=== PATIENT | female | born 1950 | race Caucasian/White ===

== ENCOUNTER 2016-06-05 08:17 | Emergency (ER) | payer BC ==
[2016-06-05 08:35] VITALS: BP 168/86
--- NOTE | 2016-06-05 08:54 | EDM.PDOC ---
ED HPI GENERAL MEDICAL PROBLEM - General Chief Complaint: General Stated Complaint: RIGHT RIB PAIB,SHORTNESS OF BREATH Time Seen by Provider: 06/05/16 08:54 Source of Information: Reports: Patient History Limitations: Reports: No limitations - History of Present Illness INITIAL COMMENTS - FREE TEXT/NARRATIVE: 65 YO WF presents to ER after fall at home in the bathroom 4 days ago. Pt complaining of right rib pain. Pt states she slipped in the bathroom falling over the tub/shower enclosure. Pt reports her pain has worsened since her fall. Pt denies any other injury. Pt denies head injury or loss of consciousness. Pt reports extensive smoking history and reports some associated shortness of breath and pleuritic right sided chest wall pain. Onset Date: 06/02/16 Duration: Day(s): (4) Location: Reports: chest Quality: Reports: Ache Severity: moderate Improves with: Reports: Rest Worsens with: Reports: Breathing Associated Symptoms: Reports: chest pain, shortness of breath right rib pain Pain Score (Numeric/FACES): 8 - Related Data Allergies Allergy/AdvReac Type Severity Reaction Status Date / Time Sulfa (Sulfonamide Allergy Unknown Cannot Unverified 06/11/13 23:50 Antibiotics) Remember erythromycin base Allergy Stomach Verified 06/11/13 23:49 [Erythromycin Base] Upset Penicillins Allergy Cannot Verified 06/05/16 08:37 Remember Tetracyclines Allergy Cannot Verified 06/11/13 23:50 Remember Home Meds: Home Meds Levothyroxine [Synthroid] 100 mcg PO DAILY 06/11/13 [History] Aspirin [Halfprin] 81 mg PO BEDTIME 06/12/13 [History] Albuterol [Ventolin HFA] 8 gm INH Q4H PRN #1 inhaler 06/05/16 [Rx] Levofloxacin [Levaquin] 500 mg PO Q24H #10 tablet 06/05/16 [Rx] guaiFENesin/Codeine Phosphate [Guaifenesin AC Cough Syrup] 1 tsp PO Q6HR PRN [History] traMADol [Ultram] 50 mg PO Q6H PRN #15 tablet 06/05/16 [Rx] Social & Family History - Tobacco Use Smoking Status *Q: Current Every Day Smoker Years of Tobacco use: 30 Packs/Tins Daily: 1 Used Tobacco, but Quit: No Second Hand Smoke Exposure: No - Caffeine Use Caffeine Use: Reports: Tea - Alcohol Use Days Per Week of Alcohol Use: 0 - Recreational Drug Use Recreational Drug Use: No ED ROS GENERAL - Review of Systems Review Of Systems: See Below Constitutional: Reports: no symptoms HEENT: Reports: No symptoms Respiratory: Reports: Shortness of Breath, Pleuritic Chest Pain. Denies: Wheezing, Cough, Sputum, Hemoptysis Cardiovascular: Reports: No symptoms Endocrine: Reports: no symptoms GI/Abdominal: Reports: No symptoms : Reports: no symptoms Musculoskeletal: Reports: no symptoms Skin: Reports: no symptoms Neurological: Reports: No Symptoms Psychiatric: Reports: No symptoms Hematologic/Lymphatic: Reports: no symptoms Immunologic: Reports: no symptoms ED EXAM, GENERAL - Physical Exam Exam: See Below Exam Limited By: No limitations General Appearance: alert, WD/WN, no apparent distress Eye Exam: bilateral eye: PERRL Ears: normal external exam, normal canal, hearing grossly normal, normal TMs Nose: normal inspection, normal mucosa, no blood Throat/Mouth: Normal inspection, Normal lips, Normal teeth, Normal gums, Normal oropharynx, Normal voice, No airway compromise Head: atraumatic, normocephalic Neck: normal inspection, supple, non-tender, full range of motion Respiratory/Chest: no respiratory distress, lungs clear, normal breath sounds, no accessory muscle use, chest non-tender Cardiovascular: normal peripheral pulses, regular rate, rhythm, no edema, no gallop, no JVD, no murmur, no rub GI/Abdominal: normal bowel sounds, soft, non tender, no organomegaly, no distention, no abnormal bruit, no mass Back Exam: normal inspection, full range of motion, NT Extremities: normal inspection, normal range of motion, non-tender, normal capillary refill, no pedal edema Neurological: alert, oriented, CN II-XII intact, normal cognition, normal gait, normal reflexes, no motor/sensory deficits Psychiatric: normal affect, normal mood Skin Exam: Warm, Dry, Intact, Normal color, No rash Lymphatic: no adenopathy Course - Vital Signs Last Recorded V/S: Last Vital Signs Temp 36.6 C 06/05/16 08:34 Pulse 75 06/05/16 08:34 Resp 22 H 06/05/16 08:34 BP 168/86 H 06/05/16 08:34 Pulse Ox 98 06/05/16 08:34 - Orders/Labs/Meds Orders: Active Orders 24 hr Category Date Time Status Ribs 2V w Chest Rt [CR] Stat Exams 06/05/16 08:53 Ordered - Radiology Interpretation Free Text/Narrative:: CXR- NAD; no fracture Departure - Departure Time of Disposition: 10:08 Disposition: Home, Self-Care 01 Condition: good Clinical Impression: Chest wall contusion Qualifiers: Encounter type: initial encounter Laterality: right Qualified Code(s): S20.211A - Contusion of right front wall of thorax, initial encounter Prescriptions: Albuterol [Ventolin HFA] 8 gm INH Q4H PRN #1 inhaler PRN Reason: Shortness Of Breath Levofloxacin [Levaquin] 500 mg PO Q24H #10 tablet traMADol [Ultram] 50 mg PO Q6H PRN #15 tablet PRN Reason: Pain Instructions: Chest Wall Pain, [id number] Forms: ED Department Discharge - My Orders Last 24 Hours: My Active Orders 06/05/16 08:53 Ribs 2V w Chest Rt [CR] Stat - Assessment/Plan Last 24 Hours: My Active Orders 06/05/16 08:53 Ribs 2V w Chest Rt [CR] Stat Assessment:: 1. right chest wall contusion 2. fall Plan: 1. ultram 50mg PO Q6 PRN pain 2. z carrie 3. albuterol MDI 4. follow up at clinic for worsening symptoms
== END 2016-06-05 10:20 | disposition home or self-care (01) ==
LOC: KA.ED 08:17
DX: S20.211A Contusion of right front wall of thorax, initial encounter (principal); F17.210 Nicotine dependence, cigarettes, uncomplicated; Z88.0 Allergy status to penicillin; Z88.2 Allergy status to sulfonamides; Z88.9 Allergy status to unspecified drugs, medicaments and biological substances; Z79.82 Long term (current) use of aspirin; W18.2XXA Fall in (into) shower or empty bathtub, initial encounter; Y92.002 Bathroom of unspecified non-institutional (private) residence as the place of occurrence of the external cause
CPT/HCPCS: 71101-RT; 99284

== ENCOUNTER 2019-05-30 07:44 | Emergency (ER) | payer BC ==
--- NOTE | 2019-05-30 08:06 | EDM.PDOC ---
ED HPI GENERAL MEDICAL PROBLEM - General Chief Complaint: Wound Recheck Stated Complaint: STICHES OPENING UP Time Seen by Provider: 05/30/19 08:00 Source of Information: Reports: Patient History Limitations: Reports: No Limitations - History of Present Illness INITIAL COMMENTS - FREE TEXT/NARRATIVE: Patient is a 68-year-old female who presents to the emergency department via private vehicle with a complaint of bleeding from surgical site. Patient states that she underwent bowel resection on May 21. Patient currently has david at incision site. Patient states last night she slept on her abdomen and awoke this morning to a small amount of blood on her sheets. Patient became concerned and decided to present to the emergency department. Patient denies chest pain, shortness of breath, abdominal pain, nausea, vomiting, diarrhea, or dysuria. Onset: Today Duration: Hour(s): Location: Reports: Abdomen Quality: Reports: Other (No pain) Severity: Mild Improves with: Reports: None Worsens with: Reports: None Associated Symptoms: Reports: No Other Symptoms - Related Data Allergies Allergy/AdvReac Type Severity Reaction Status Date / Time Sulfa (Sulfonamide Allergy Unknown Cannot Verified 07/21/18 13:55 Antibiotics) Remember erythromycin base Allergy Stomach Verified 07/21/18 13:55 [Erythromycin Base] Upset Penicillins Allergy Cannot Verified 07/21/18 13:55 Remember Tetracyclines Allergy Cannot Verified 07/21/18 13:55 Remember Home Meds: Home Meds Levothyroxine [Synthroid] 100 mcg PO DAILY 06/11/13 [History] Aspirin [Halfprin] 81 mg PO BEDTIME 06/12/13 [History] guaiFENesin/Codeine Phosphate [Guaifenesin AC Cough Syrup] 1 tsp PO Q6HR PRN [History] Lansoprazole 30 mg PO DAILY PRN 07/21/18 [History] Rosuvastatin [Crestor] 10 mg PO DAILY 07/21/18 [History] Past Medical History HEENT History: Reports: Otitis Media, Other (See Below) Other HEENT History: benign paroxysmal vertigo Cardiovascular History: Reports: Arrhythmia, High Cholesterol, Hypertension, Other (See Below) 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 Constitutional: Reports: No Symptoms HEENT: Reports: No Symptoms Respiratory: Reports: No Symptoms Cardiovascular: Reports: No Symptoms Endocrine: Reports: No Symptoms GI/Abdominal: Reports: No Symptoms : Reports: No Symptoms Musculoskeletal: Reports: No Symptoms Skin: Reports: Other (Bleeding from incision site) Neurological: Reports: No Symptoms Psychiatric: Reports: No Symptoms Hematologic/Lymphatic: Reports: No Symptoms Immunologic: Reports: No Symptoms ED EXAM, GENERAL - Physical Exam Exam: See Below Exam Limited By: No Limitations General Appearance: Alert, WD/WN, No Apparent Distress Throat/Mouth: Normal Inspection, Normal Oropharynx, No Airway Compromise Head: Atraumatic, Normocephalic Respiratory/Chest: No Respiratory Distress, Lungs Clear, Normal Breath Sounds, No Accessory Muscle Use, Chest Non-Tender Cardiovascular: Regular Rate, Rhythm, No Murmur GI/Abdominal: Normal Bowel Sounds, Soft, Non-Tender, No Organomegaly, No Distention, No Abnormal Bruit, No Mass Back Exam: Normal Inspection. No: CVA Tenderness (L), CVA Tenderness (R) Extremities: Normal Inspection Neurological: Alert, Oriented, Normal Cognition Psychiatric: Normal Affect, Normal Mood Skin Exam: Warm, Dry, Intact, Normal Color, No Rash, Other (Mid abdomen incision site encompassing umbilicus with david intact. No dehiscence. Small amount of serosanguineous fluid. No hematoma or mass appreciated.) Lymphatic: No Adenopathy Course - Re-Assessments/Exams Free Text/Narrative Re-Assessment/Exam: 05/30/19 08:06 Patient afebrile, vital signs stable, denies abdominal pain, nausea, vomiting, diarrhea. Small amount of serosanguineous fluid noted from surgical incision site. Wound redressed and patient will follow-up with surgeon as scheduled Departure - Departure Time of Disposition: 08:07 Disposition: Home, Self-Care 01 Condition: Good Clinical Impression: Encounter for postoperative wound check - Discharge Information Instructions: Sutures, Onia, or Adhesive Wound Closure, [id number], Wound Check Referrals: Mena Bautista MD [Primary Care Provider] - Forms: ED Department Discharge Additional Instructions: Follow-up with surgeon as scheduled. Return to emergency department sooner if symptoms continue or worsen. - Assessment/Plan Assessment:: Postsurgical wound check Plan: Follow-up with surgeon as scheduled
[2019-05-30 12:51] VITALS: BP 146/56; PULSE 70
== END 2019-05-30 08:10 | disposition home or self-care (01) ==
LOC: KA.ED 07:44
DX: Z48.815 Encounter for surgical aftercare following surgery on the digestive system (principal); E78.00 Pure hypercholesterolemia, unspecified; I10 Essential (primary) hypertension; K21.9 Gastro-esophageal reflux disease without esophagitis; E03.9 Hypothyroidism, unspecified; Z79.899 Other long term (current) drug therapy; Z88.2 Allergy status to sulfonamides; Z88.1 Allergy status to other antibiotic agents; Z88.0 Allergy status to penicillin; Z88.8 Allergy status to other drugs, medicaments and biological substances; Z79.82 Long term (current) use of aspirin
CPT/HCPCS: 99283

== ENCOUNTER 2020-12-06 14:55 | Emergency (ER) | payer BC ==
[2020-12-06 15:15] VITALS: BP 127/82; PULSE 81
--- NOTE | 2020-12-06 16:13 | EDM.PDOC ---
ED HPI GENERAL MEDICAL PROBLEM - General Chief Complaint: General Stated Complaint: ANAL PAIN/sciatica left leg Time Seen by Provider: 12/06/20 15:10 Source of Information: Reports: Patient, Family () - History of Present Illness INITIAL COMMENTS - FREE TEXT/NARRATIVE: This is a 70-year-old female who comes in with quite clinical complexity of complaints. She has had a long history of bowel problems over the past a year which was pertaining to her diverticulitis. She reports she had about a 10 inches removed of her large bowel due for diverticulitis about a year ago. Her postoperative course was complicated with postoperative infection and leakage. Ultimately she went on to have a colostomy for bowel rest which has been reversed back. She complains of pain down in her left groin and she states that this radiates to her rectum. She complains of having spasms and is taking Flexeril for this. Sounds like she has had extensive work-up follows up both with her general surgeon from [facility] in [place] as well as primary care. She does use Flexeril for muscle relaxer and lidocaine gel over her rectum she takes Tylenol PM for the pain and discomfort. Her main focus today seems to be that she is now experiencing more left buttock and leg pain with a radicular origin. She denies significant back pain. She does not walk very far. Fact she walks probably less than a block. Stairs have become almost impossible for her unless she has support of a rail system because of the pain that she gets in her left buttock. She has had a work-up recently with her primary care who has told her she does not have hemorrhoids. She does have daily bowel movements. She reports no dysuria or hematuria no blood in her stool. She has not experienced any weight loss. Has been told in the past that she has a some hip arthritis per her 's report. She has not had further work-up with regards to her back or radicular symptoms in her leg. She is not currently experiencing any fever or chills, currently no abdominal pain, no diarrhea no constipation no symptoms. She has a bowel movement every day. Onset: Unknown/Unsure Duration: Week(s): (Chronic for months) Location: Reports: Pelvis, Lower Extremity, Left Quality: Reports: Ache, Burning, Stabbing Severity: Moderate Improves with: Reports: Rest Worsens with: Reports: Movement (Ambulatory) Associated Symptoms: Reports: No Other Symptoms Treatments [employer]: Reports: Acetaminophen, Other Medication(s) Left Groin Pain Score (Numeric/FACES): 3 - Related Data Allergies Allergy/AdvReac Type Severity Reaction Status Date / Time Sulfa (Sulfonamide Allergy Unknown Cannot Verified 12/06/20 15:20 Antibiotics) Remember erythromycin base Allergy Stomach Verified 12/06/20 15:20 [Erythromycin Base] Upset Penicillins Allergy Cannot Verified 12/06/20 15:20 Remember Tetracyclines Allergy Cannot Verified 12/06/20 15:20 Remember Home Meds: Home Meds Levothyroxine [Synthroid] 100 mcg PO DAILY 06/11/13 [History] Aspirin [Halfprin] 81 mg PO DAILY 06/12/13 [History] Lansoprazole 30 mg PO DAILY PRN 07/21/18 [History] Rosuvastatin [Crestor] 10 mg PO DAILY 07/21/18 [History] Acetaminophen [Tylenol Extra Strength] 1,000 mg PO Q4H PRN 12/06/20 [History] Acetaminophen/Diphenhydramine [Tylenol Pm Ex-Strength Caplet] 1 each PO BEDTIME 12/06/20 [History] Cyclobenzaprine [Flexeril] 10 mg PO TID PRN 12/06/20 [History] Lidocaine 2% [Lidocaine 2% Jelly] 1 ml TOP TID PRN 12/06/20 [History] Phenyleph/Pramoxin/Glycr/w.Pet [Preparation H Cream] 1 gm RC DAILY PRN 12/06/20 [History] Past Medical History HEENT History: Reports: Otitis Media, Other (See Below) Other HEENT History: benign paroxysmal vertigo Cardiovascular History: Reports: Arrhythmia, High Cholesterol, Hypertension, Other (See Below) 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 Respiratory History: Reports: Other (See Below) Other Respiratory History: seasonal allergic rhinitis Gastrointestinal History: Reports: Diverticulosis, GERD Musculoskeletal History: Reports: Back Pain, Chronic, Neck Pain, Chronic Endocrine/Metabolic History: Reports: Hypothyroidism Oncologic (Cancer) History: Reports: Thyroid Social & Family History - Tobacco Use Tobacco Use Status *Q: Current Every Day Tobacco User Years of Tobacco use: 40 Packs/Tins Daily: 1 - Caffeine Use Caffeine Use: Reports: Coffee, Tea - Recreational Drug Use Recreational Drug Use: No ED ROS GENERAL - Review of Systems Review Of Systems: See Below Constitutional: Denies: Fever, Chills, Weakness, Fatigue, Diaphoresis, Decreased Appetite, Weight Loss HEENT: Reports: No Symptoms Respiratory: Denies: Shortness of Breath, Cough Cardiovascular: Denies: Chest Pain, Blood Pressure Problem Endocrine: Reports: No Symptoms GI/Abdominal: Reports: Abdominal Pain. Denies: Black Stool, Bloody Stool, Constipation, Diarrhea, Distension, Nausea, Vomiting : Denies: Discharge, Dysuria, Flank Pain, Frequency, Hematuria Musculoskeletal: Reports: Leg Pain Skin: Denies: Cyanosis, Jaundice Neurological: Reports: Difficulty Walking Psychiatric: Reports: No Symptoms Hematologic/Lymphatic: Reports: No Symptoms Immunologic: Reports: No Symptoms ED EXAM, GENERAL - Physical Exam Exam: See Below Exam Limited By: No Limitations General Appearance: Alert, No Apparent Distress, Obese Eye Exam: Bilateral Eye: EOMI Ears: Hearing Grossly Normal Nose: Normal Inspection, Normal Mucosa Throat/Mouth: Normal Voice, No Airway Compromise Head: Atraumatic Neck: Normal Inspection Respiratory/Chest: No Respiratory Distress GI/Abdominal: Soft, Non-Tender, No Organomegaly, No Distention, Other (Her wounds are healed there is no tenderness to the belly at the palpation.). No: Guarding, Rebound Rectal (Female) Exam: Normal Exam, Normal Rectal Tone. No: Hemorrhoids, Perirectal Abscess, Rectal Fissure, Tenderness Back Exam: Normal Inspection, Full Range of Motion. No: Muscle Spasm, Paraspinal Tenderness, Vertebral Tenderness Extremities: Normal Inspection, Normal Range of Motion, Non-Tender, No Pedal Edema, Other. No: Joint Swelling Neurological: Alert, Oriented, CN II-XII Intact, Normal Cognition, Normal Reflexes, No Motor/Sensory Deficits, Abnormal Gait (Mild antalgic gait on the l eft) Psychiatric: Normal Affect, Normal Mood Skin Exam: Warm, Dry, Intact, Normal Color, No Rash Lymphatic: No Adenopathy Course - Vital Signs Last Recorded V/S: Last Vital Signs Temp 97.5 F 12/06/20 15:08 Pulse 81 12/06/20 15:08 Resp 18 12/06/20 15:08 BP 127/82 12/06/20 15:08 Pulse Ox 95 12/06/20 15:08 - Orders/Labs/Meds Orders: Active Orders 24 hr Category Date Time Status UA RFX RHONDA AND CULT IF INDIC [URIN] Stat Lab 12/06/20 17:11 Ordered Labs: Laboratory Tests 12/06/20 12/06/20 Range/Units 16:10 16:10 WBC 10.86 H (5.00-10.00) 10^3/uL RBC 4.48 (3.80-5.50) 10^6/uL Hgb 13.6 (12.0-16.0) g/dL Hct 41.4 (37.0-47.0) % MCV 92.4 H (82.0-92.0) fL MCH 30.4 (27.0-31.0) pg MCHC 32.9 (32.0-36.0) g/dL RDW 12.8 (11.5-14.5) % Plt Count 288 (150-400) 10^3/uL MPV 9.1 (7.4-10.4) fL Immature Gran % (Auto) 0.2 (0.0-5.0) % Neut % (Auto) 65.5 (50.0-70.0) % Lymph % (Auto) 23.4 (20.0-40.0) % Arroyo % (Auto) 6.4 (2.0-8.0) % Eos % (Auto) 4.1 H (1.0-3.0) % Baso % (Auto) 0.4 (0.0-1.0) % Neut # (Auto) 7.12 H (2.50-7.00) 10^3/uL Lymph # (Auto) 2.54 (1.00-4.00) 10^3/uL Arroyo # (Auto) 0.69 (0.10-0.80) 10^3/uL Eos # (Auto) 0.45 H (0.10-0.30) 10^3/uL Baso # (Auto) 0.04 (0.00-0.10) 10^3/uL Immature Gran # (Auto) 0.02 (0.00-0.50) 10^3/uL Sodium 143 (136-145) mmol/L Potassium 4.4 (3.5-5.1) mmol/L Chloride 105 (98-107) mmol/L Carbon Dioxide 28.5 (21.0-32.0) mmol/L Anion Gap 13.9 (5-15) mmol/L BUN 15 (7-18) mg/dL Creatinine 0.66 (0.51-1.17) mg/dL Est Cr Clr Drug Dosing 57.78 mL/min Estimated GFR (MDRD) > 60 mL/min Glucose 110 (70-140) mg/dL Calcium 9.0 (8.7-10.3) mg/dL Total Bilirubin 0.3 (0.2-1.0) mg/dL AST 16 (15-37) U/L ALT 17 (14-63) U/L Alkaline Phosphatase 64 (46-116) U/L Total Protein 7.7 (6.4-8.2) g/dL Albumin 3.73 (3.40-5.00) g/dL Meds: Medications Discontinued Medications Generic Name Dose Route Start Last Admin Trade Name Freq PRN Reason Stop Dose Admin Tramadol HCl 200 mg 12/06/20 17:00 12/06/20 17:05 Tramadol 50 Mg Tab PO 12/06/20 17:01 200 mg ONETIME ONE Administration - Radiology Interpretation Free Text/Narrative:: X-ray pelvis with left lateral hip 2 views Discussion; No fracture, dislocation or other osseous abnormality Impression: negative exam Xrays 2-3 views lumbar spine Findings: Grade 2 anterior listhesis L4 over L5 Multilevel degenerative changes lumbar spine including loss of disc space height, endplate osteophytosis and facet arthropathy. Findings are most pronounced at L5-S1. Surgical clips overlying the right upper quadrant Impression: Grade 2 anterior listhesis L4-5 Multilevel degenerative changes pronounced at L5-S1 No acute fracture or subluxation. Chronic changes as above - Re-Assessments/Exams Free Text/Narrative Re-Assessment/Exam: 12/06/20 17:19 Patient is in agreements with these recommendations and findings to her reviewed with her today. She is willing to follow-up with a primary care for further work-up and lumbar spine. Departure - Departure Time of Disposition: 17:20 Disposition: Home, Self-Care 01 Condition: Good Clinical Impression: Abdominal pain, chronic, left lower quadrant, Status post partial resection of colon, Spondylolisthesis at L4-L5 level, Lumbar back pain with radiculopathy affecting left lower extremity - Discharge Information Instructions: Spinal Stenosis, [id number] Referrals: Ana M Tate MD [Primary Care Provider] - Forms: ED Department Discharge Care Plan Goals: 1. Tramadol 50 mg 1 p.o. every 8 hours as needed for pain 2. Patient may continue with her Tylenol and Flexeril as indicated for pain and muscle spasms. 3. Follow-up with your primary care. Patient will need an MRI of her lumbar spine for left radicular leg pain and grade 2 spondylolisthesis radiograph at L4-5. Sepsis Event Note (ED) - Evaluation Sepsis Screening Result: No Definite Risk - Focused Exam Vital Signs: Vital Signs Temp Pulse Resp BP Pulse Ox 12/06/20 15:08 97.5 F 81 18 127/82 95 - My Orders Last 24 Hours: My Active Orders 12/06/20 17:11 UA RFX RHONDA AND CULT IF INDIC [URIN] Stat - Assessment/Plan Last 24 Hours: My Active Orders 12/06/20 17:11 UA RFX RHONDA AND CULT IF INDIC [URIN] Stat Assessment:: Chronic left lower quadrant pain Status post partial colon resection Status post colonoscopy with reversal Grade 2 spondylolisthesis L4-5 Left radicular leg pain Plan: 1. Tramadol 50 mg p.o. every 8 hours as needed 2. Continue with extra strength Tylenol as needed 3. Continue with muscle relaxer as needed. 4. Follow-up with your primary care for radicular leg pain. Would recommend MRI of lumbar spine.
[2020-12-06 16:40] LABS: ANION GAP 13.9 mmol/L (5-15); CHLORIDE,CL 105 mmol/L (98-107); SODIUM,NA 143 mmol/L (136-145)
--- NOTE | 2020-12-06 16:52 | CR ---
[id number] RAD/RAD Pelvis W Left Lateral Hip EXAM: 2 VIEWS LEFT HIP. INDICATION: LEFT GROIN PAIN. COMPARISON: None. DISCUSSION: No fracture, dislocation or other osseous abnormality. IMPRESSION: 1. Negative exam. Tobi Jonse DO 12/06/20 [id number] Thank you for allowing us to participate in the care of your patient.
--- NOTE | 2020-12-06 16:53 | CR ---
[id number] RAD/RAD Lumbar Spine 2-3V EXAM: AP AND LATERAL LUMBAR SPINE. INDICATION: Pain. COMPARISON: No previous similar exam is available for comparison. FINDINGS: Grade 2 anterolisthesis of L4 over L5. Multilevel degenerative changes of the lumbar spine including loss of disc space height, endplate Osteophytosis and facet arthropathy. Findings are most pronounced at L5-S1. The pedicles are intact. Surgical clips overlying the right upper quadrant IMPRESSION: NO ACUTE FRACTURE OR SUBLUXATION. CHRONIC CHANGES ABOVE. Tobi Jones DO 12/06/20 [id number] Thank you for allowing us to participate in the care of your patient.
[2020-12-06] MEDS ORDERED: traMADol 50 MG Tab PO ONE (17:00)
== END 2020-12-06 17:30 | disposition home or self-care (01) ==
LOC: KA.ED 14:55
DX: R10.32 Left lower quadrant pain (principal); G89.29 Other chronic pain; M43.06 Spondylolysis, lumbar region; M54.16 Radiculopathy, lumbar region; E78.00 Pure hypercholesterolemia, unspecified; I10 Essential (primary) hypertension; Z79.82 Long term (current) use of aspirin; Z79.899 Other long term (current) drug therapy; Z88.0 Allergy status to penicillin; Z88.1 Allergy status to other antibiotic agents; Z72.0 Tobacco use; Z90.49 Acquired absence of other specified parts of digestive tract
CPT/HCPCS: 36415; 72100; 80053; 81003; 85025; 99284; 99284-25; A9270-GY

== ENCOUNTER 2023-04-07 22:46 | Emergency (ER) | payer BC ==
[2023-04-07 23:18] LABS: BASOPHILS ABSOLUTE AUTO 0.03 10^3/uL (0.00-0.10); BASOPHILS PERCENT AUTO 0.3 % (0.0-1.0); EOSINOPHILS PERCENT AUTO 2.9 % (1.0-3.0); HEMATOCRIT 39.8 % (37.0-47.0); HEMOGLOBIN 13.3 g/dL (12.0-16.0); IMMATURE GRAN ABSOLUTE AUTO 0.02 10^3/uL (0.00-0.50); IMMATURE GRAN PERCENT AUTO 0.2 % (0.0-5.0); LYMPHOCYTES ABSOLUTE AUTO 3.33 10^3/uL (1.00-4.00); LYMPHOCYTES PERCENT AUTO 31.7 % (20.0-40.0); MEAN CORPUSCULAR HEMOGLOBIN 31.3 pg (27.0-31.0); MEAN CORPUSCULAR HGB CONC 33.4 g/dL (32.0-36.0); MEAN CORPUSCULAR VOLUME 93.6 fL (82.0-92.0); MEAN PLATELET VOLUME 9.1 fL (7.4-10.4); MONOCYTES ABSOLUTE AUTO 0.67 10^3/uL (0.10-0.80); MONOCYTES PERCENT AUTO 6.4 % (2.0-8.0); NEUTROPHILS ABSOLUTE AUTO 6.14 10^3/uL (2.50-7.00); NEUTROPHILS PERCENT AUTO 58.5 % (50.0-70.0); PLATELET COUNT,PLT 269 10^3/uL (150-400); RED BLOOD CELL COUNT 4.25 10^6/uL (3.80-5.50); WHITE BLOOD CELL COUNT,WBC 10.49 10^3/uL (5.00-10.00)
[2023-04-07 23:34] LABS: ALBUMIN 3.7 g/dL (3.40-5.00); ANION GAP 13.6 mmol/L (5-15); BILIRUBIN TOTAL 0.3 mg/dL (0.2-1.0); CALCIUM 8.5 mg/dL (8.7-10.3); CARBON DIOXIDE,CO2 30.4 mmol/L (21.0-32.0); CREATININE 0.77 mg/dL (0.51-1.17); EST CRCL DRUG DOSING (CG) 48.13 mL/min; PROTEIN TOTAL,TP 6.9 g/dL (6.4-8.2)
[2023-04-08 00:02] VITALS: BP 147/83; PULSE 98
== END 2023-04-08 00:02 | disposition home or self-care (01) ==
LOC: KA.ED 22:46
DX: M79.662 Pain in left lower leg (principal); I10 Essential (primary) hypertension; E78.00 Pure hypercholesterolemia, unspecified; K21.9 Gastro-esophageal reflux disease without esophagitis; F17.210 Nicotine dependence, cigarettes, uncomplicated; Z79.82 Long term (current) use of aspirin; Z79.899 Other long term (current) drug therapy; Z88.2 Allergy status to sulfonamides; Z88.1 Allergy status to other antibiotic agents; Z88.0 Allergy status to penicillin
CPT/HCPCS: 36415; 80053; 85025; 85379; 99283